=== PATIENT | female | born 1990 | race Caucasian/White ===

== ENCOUNTER 2019-10-31 20:27 | Emergency (ER) | payer SELFPAY ==
[2019-10-31 20:45] VITALS: TEMP 98.4; BMI 28.3
--- NOTE | 2019-10-31 20:46 | PDOC ---
Rapid Medical Evaluation Medical Evaluation: 10/31/19 20:39 I have performed a brief in-person evaluation of this patient. The patient presents with a chief complaint of: Facial asymmetry since last night Pertinent physical exam findings:L sided facial droop, unable to fully close L eye and raise L brow c/w Martinez's I have ordered the following:nothing The patient will proceed to the ED for further evaluation Discharge Disposition - Diagnosis Martinez's palsy - Referrals - Patient Instructions - Post Discharge Activity
[2019-10-31] MEDS ORDERED: valACYclovir HCL 1000 MG TABLET PO ONE (23:20)
[2019-10-31] MEDS ORDERED: predniSONE 20 MG TABLET (UD) PO ONE (23:20)
--- NOTE | 2019-10-31 23:36 | PDOC ---
History of Present Illness - General Chief Complaint: Headache Stated Complaint: HEADACHE Time Seen by Provider: 10/31/19 20:40 - History of Present Illness Initial Comments: 29F w/o PMH presenting with 1 day of left facial droop involving the forehead in the setting of 5 days of on/off headache localized directly posterior to the left ear spreading down the lateral neck. Has had a dry cough for 2 weeks. Endorses alteration of taste on left side. Denies f/c, changes in vision, hearing, n/v, cp/sob, diarrhea, dysuria, abd pain. Denies numbness, tingling, focal weakness. She took tylenol for headache last neck. NKDA No PCP Endorses frequent hookah s/p b/l tubal ligation Past History - Past Medical History Allergies/Adverse Reactions: Allergies Allergy/AdvReac Type Severity Reaction Status Date / Time No Known Allergies Allergy Verified 10/31/19 20:45 Home Medications: Ambulatory Orders Valacyclovir HCl [Valtrex -] 1,000 mg PO TID 7 Days #21 tablet 10/31/19 predniSONE [Deltasone -] 60 mg PO DAILY 7 Days #21 tablet 10/31/19 COPD: No - Psycho Social/Smoking Cessation Hx Smoking History: Current every day smoker Information on smoking cessation initiated: No Review of Systems - Review of Systems Comments:: CONSTITUTIONAL: Denies F / C HEENT: Endorses headache, left sided facial droop. Denies changes in vision / hearing, diplopia, blurry vision RESP: Denies SOB, cough, orthopnea, KOWALSKI CARD: Denies chest pain, palpitations GI: Denies N / V / D, abdominal pain, bloody stool, inability to tolerate PO : Denies dysuria, hematuria, frequency SKIN: Denies rashes NEURO: Denies limb numbness, tingling, focal weakness MSK: Endorses lateral neck ache *Physical Exam - Vital Signs Last Vital Signs Temp Pulse Resp BP Pulse Ox 98.4 F 85 18 137/96 99 10/31/19 20:42 10/31/19 20:42 10/31/19 20:42 10/31/19 20:42 10/31/19 20:42 - Physical Exam GEN: Well appearing, NAD, comfortable. AAOx3. HEENT: NC/AT, EOMI, PERRL. CN II-XII grossly intact EXCEPT CN VII - There is left face droop, asymmetric smile, and flattening of the forehead. Eyelids still close tightly. No TTP of the mastoid process, no midline TTP of the neck. TMs clear b/l. + submental lymphadenopathy. LUNG: CTAB, no wheezes, crackles, rales, rhonchi. GI: Soft, ndnt, +BS, no guarding, no rebound. EXTREMITIES: No obvious deformities of all extremities. SKIN: Warm, dry, no rashes appreciated. PSYCH: Normal mood and affect. NEURO: Moving all extremities well. 5/5 UE and LE strength b/l. Symmetric sensation. Normal gait. ED Treatment Course - RADIOLOGY Radiology Studies Ordered: Category Date Time Status HEAD CT WITHOUT CONTRAST [CT] Stat CT Scan 10/31/19 23:20 Ordered Medical Decision Making - Medical Decision Making 10/31/19 23:24 29F w/ left sided facial droop w/ forehead flattening. Likely craft's palsy. CN VII deficits otherwise neurologically intact. - CT head - Prednisone - Valtrex - Toradol 11/01/19 00:08 signed out to PM team Discharge - Discharge Information Problems reviewed: Yes Clinical Impression/Diagnosis: Craft's palsy Condition: Stable Disposition: HOME - Admission No - Additional Discharge Information Prescriptions: predniSONE [Deltasone -] 60 mg PO DAILY 7 Days #21 tablet Valacyclovir HCl [Valtrex -] 1,000 mg PO TID 7 Days #21 tablet - Follow up/Referral Referrals: [facility] [place] [facility] [place] [Provider Group] Baltazar Tracey MD [Staff Physician] - Joseph Alatorre MD [Staff Physician] - Kike Bess MD [Staff Physician] - - Patient Discharge Instructions Patient Printed Discharge Instructions: DI for Craft's Palsy Additional Instructions: You treated for Craft's Palsy in the Emergency Department. [facility]; please pick it up and take as prescribed. you should take prednisone 60 mg daily for 7 days. you should also take valtrex 1 G three times daily x 7 days. Use eye drops in the left eye and sleep with a eye patch or cover; this will help prevent your eye from drying out. Take tylenol or ibuprofen for headache FOLLOW THE INSTRUCTIONS ON THE LABEL. DO NOT EXCEED THE DOSE ON THE LABEL. We are referring you to [facility] for primary care. Call the number below and schedule an appointment within the next 7 days. We are referring you to a Neurologist; please call the number below and schedule an appointment in the next 7 days. Return to the Emergency Department immediately if you experience: - worsening headache - changes in your vision - inability to eat or drink - weakness or loss of sensation to any limb - anything that concerns you Usted trat la parlisis de Craft en el departamento de emergencias. Hemos enviado medicamentos adicionales a [facility]; tmalo y tmalo segn lo prescrito Use gotas para los ojos en el carmelita gi y duerma con un parche o cubierta ocular; [place] ayudar a evitar que raymond carmelita se seque. Vamo tylenol o ibuprofeno para el dolor de clemente SIGA LAS INSTRUCCIONES EN LA ETIQUETA. NO EXCEDA LA DOSIS EN LA ETIQUETA. Lo remitimos al [facility] para atencin primaria. Llame al nmero que figura a continuacin y programe muriel yue dentro de los prximos 7 lynch. Lo estamos derivando a un neurlogo; llame al nmero que figura a continuacin y programe muriel yue en los prximos 7 lynch. Regrese al Departamento de emergencias de inmediato si experimenta: - empeoramiento del dolor de clemente - cambios en raymond visin - incapacidad para comer o beber - Debilidad o prdida de la sensibilidad de cualquier miembro. - cualquier cosa que te preocupe - Post Discharge Activity Work/Back to School Note: Back to Work
[2019-10-31] MEDS ORDERED: KETOROLAC TROMETHAMINE 30 MG/1 ML VIAL IM ONE (23:45)
--- NOTE | 2019-10-31 23:45 | PDOC ---
Documentation entered by Marcella Ni SCRIBE, acting as scribe for Sarah Obrien MD. Sarah Obrien MD: This documentation has been prepared by the dannyeLast Lincy, SCRIBE, under my direction and personally reviewed by me in its entirety. I confirm that the documentation accurately reflects all work, treatment, procedures, and medical decision making performed by me. Attending Attestation - Resident Resident Name: Danial Solano - ED Attending Attestation I have performed the following: I have examined & evaluated the patient, The case was reviewed & discussed with the resident, I agree w/resident's findings & plan, Exceptions are as noted - HPI HPI: 10/31/19 23:56 The patient is a 29-year-old female with no reported past medical history who presents to the emergency department with left-sided facial weakness, headache, and cold symptoms. The patient reports she woke up today with left-sided facial weakness, associated with few days of intermittent episodes left posterior occipital headache, palpable nodule under her chin and neck, mild sore throat, cough, and a runny nose. Denies fever, chills, nausea, vomiting, vision changes , numbness, or tingling. - Physicial Exam PE: 10/31/19 23:40 awake alert lungs clear bilat heart rrr no mrg abd soft nt nd ext wwp. no edema. no calf tenderness. ext wwp. left CN II - XIi intact escept CN VII left face paralysis, involves forehead. palp submandibular lymphadenopathy. shotty, mobile. tender. all else 5/5 all four ext. - Medical Decision Making 10/31/19 23:43 29 yo F with bells palsy left face, differential iincludes Cn compression from other lesion due to headache. posterior head will ct head. givein valtrex and prednisone. eye patch at night eye drops for lubrication. will given nuero followup. 11/01/19 00:46 ct head is unremarkable. will dc home insturction for bells palsy with rx for prednisone and valtrex
[2019-10-31] MEDS ORDERED: predniSONE 20 MG TABLET (UD) ONE (23:52)
[2019-10-31] MEDS ORDERED: valACYclovir HCL 500 MG TABLET (FP) ONE (23:52)
[2019-10-31] MEDS ORDERED: KETOROLAC TROMETHAMINE 30 MG/1 ML VIAL ONE (23:53)
[2019-11-01 01:03] VITALS: BP 143/91; PULSE 81
== END 2019-11-01 01:00 | disposition home or self-care (01) ==
LOC: JER 20:27 → JERFT 20:27 → JER 11-01 01:00
PROC: 3E0233Z Introduction of Anti-inflammatory into Muscle, Percutaneous Approach (ICD-10-PCS; principal; 2019-10-31)
DX: G51.0 Bell's palsy (principal)
CPT/HCPCS: 70450-TC; 99282-25

== ENCOUNTER 2020-12-30 13:05 | Emergency (ER) | payer OTHER ==
[2020-12-30 13:19] VITALS: BP 115/72; PULSE 67; TEMP 98.1; BMI 26.6
[2020-12-30] MEDS ORDERED: DEXAMETHASONE LIQUID 0.5 MG/5 ML PO ONE (14:44)
[2020-12-30] MEDS ORDERED: DEXAMETHASONE SOD PHOSPHATE 10 MG/1 ML VIAL ONE (14:50)
== END 2020-12-30 16:33 | disposition home or self-care (01) ==
LOC: JERFT 13:05
DX: R59.0 Localized enlarged lymph nodes (principal); M54.2 Cervicalgia
CPT/HCPCS: 70360-TC-FY; 87070; 87880; 99284-25